=== PATIENT | female | born 1960 | race Two or more races ===

== ENCOUNTER 2018-04-15 16:50 | Emergency (ER) | payer MEDICARE, MEDICAID ==
[~2018-04-15] VITALS: Ht 160 cm; Wt 54.4 kg
[2018-04-15 17:00] VITALS: BP 128/62
--- NOTE | 2018-04-15 17:15 | Emergency Room Report ---
History of Present Illness General Chief Complaint: Chest Pain Source: Patient Present Illness HPI Patient is a 58-year-old female who presented after increased left sided sharp chest pain. Patient was noted to be smoker. She had nonproductive cough. Patient had worsening pain with movement. Patient denies any vomiting or diarrhea. She had not been having any fever. She denies recent trauma. Allergies: Coded Allergies: No Known Allergies (Unverified , 04/15/18) Patient History Now: No Reviewed Nursing Documentation: PMH: Agreed; PSxH: Agreed Nursing Documentation-PMH Past Medical History: No Stated History Review of Systems All Other Systems: negative except mentioned in HPI Physical Exam Vital Signs Date Time Temp Pulse Resp B/P (MAP) Pulse Ox O2 Delivery O2 Flow Rate FiO2 04/15/18 16:54 98.5 66 20 128/62 96 Room Air 98.4 Sp02 EP Interpretation: reviewed, normal General Appearance: normal inspection, well appearing, no apparent distress, alert, GCS 15 Head: atraumatic ENT: normal ENT inspection, hearing grossly normal, normal voice Neck: normal inspection, full range of motion, supple, no bony tend Respiratory: normal inspection, lungs clear, normal breath sounds, no respiratory distress, no retraction, no wheezing Cardiovascular #1: regular rate, rhythm, no edema Gastrointestinal: normal inspection, normal bowel sounds, non tender, soft, no guarding, no hernia Genitourinary: no CVA tenderness Musculoskeletal: normal inspection, back normal, normal range of motion Neurologic: normal inspection, alert, responsive, speech normal Psychiatric: normal inspection, judgement/insight normal, mood/affect normal Skin: other - rash to left chest wall in dermatomal distribution c/w early shingles Medical Decision Making Diagnostic Impression: Primary Impression: Shingles ER Course Patient presented for chest pain. Differential diagnosis included but was not limited to acute coronary syndrome, pulmonary embolism, pneumonia, aortic dissection, shingles, pneumothorax, aortic dissection, esophageal rupture, pericarditis. Patient has a benign exam and does not appear to require any further imaging or laboratory testing at this time. Chest x-ray one view interpreted by me showed normal Kardex as without evident infiltrate. EKG interpreted by me showed normal sinus rhythm without acute ST or T wave changes.The patient is advised to follow up with primary care doctor in for recheck.. Patient is advised to return if any worsening condition or if any changes in status that are concerning. This report is dictated with [employer] proposal manager software which may occasionally lead to discrepancies related to use of this software. Last Vital Signs Date Time Temp Pulse Resp B/P (MAP) Pulse Ox O2 Delivery O2 Flow Rate FiO2 04/15/18 16:54 98.5 66 20 128/62 96 Room Air 98.4 Status: improved Disposition: HOME, SELF-CARE Condition: Stable Scripts Ibuprofen* (MOTRIN*) 600 Mg Tablet 600 MG ORAL Q8H PRN for For Pain, #30 TAB 0 Refills Prov: Ashok Haryd MD 04/15/18 Acyclovir* (ZOVIRAX*) 800 Mg Tablet 800 MG ORAL FIVE TIMES A DAY, #35 TAB Prov: Ashok Hardy MD 04/15/18 Hydrocodone Bit/Acetaminophen 5-325* (NORCO 5-325*) 1 Each Tablet 1 TAB ORAL Q6H PRN for For Pain, #20 TAB 0 Refills Prov: Ashok Hardy MD 04/15/18 Ashok Hardy MD Apr 15, 2018 17:15
[2018-04-15] MEDS ORDERED: Norco 5mg/325mg tab ORAL ONE (17:45)
[2018-04-15] MEDS ORDERED: ACYCLOVIR800 MG ORAL (17:46)
[2018-04-15] MEDS ORDERED: IBUPROFEN600 MG ORAL (17:46)
[2018-04-15] MEDS ORDERED: NORCO 5-325 TA1 EACH ORAL (17:46)
[2018-04-15 17:55] VITALS: BP 125/59
--- NOTE | 2018-04-16 08:09 | Diagnostic Imaging Report ---
Indication: Shortness of breath Technique: One view of the chest Comparison: none Findings: Lungs and pleural spaces are clear. Heart size is normal. There is mild thoracic scoliotic deformity Impression: No acute process
--- NOTE | 2018-04-17 18:59 | Cardiology Report ---
APPROVED REPORT EKG Measurement Heart [id number] Normal sinus rhythm Possible Left atrial enlargement Borderline ECG
== END 2018-04-15 18:00 | disposition home or self-care (01) ==
LOC: EMR 17:49
DX: B02.9 Zoster without complications (principal)
CPT/HCPCS: 71045; 93005; 99283